=== PATIENT | female | born 1935 | race Caucasian/White ===

== ENCOUNTER → 2018-02-11 | Day surgery (SDC) | payer MEDICARE ==
--- NOTE | 2018-02-10 13:22 | Pre Op History & Physical ---
CHIEF COMPLAINT: Is chronic sinusitis, nasal obstruction. HISTORY OF PRESENT ILLNESS: This 82-year-old female has history of nasal obstruction. She has postnasal drip discharge from her nose. She has frontal and maxillary pain. She has decreased sense of smell. The patient's sinus condition has been treated with topical nasal steroid, decongestant, antibiotics with no improvement. The patient also has undergone a sinuplasty in June of 2017. However, the problem did not completely go away. The patient also is pending a dental implant without the maxillary sinus been cleared. Patient cannot undergo implantation. REVIEW OF SYSTEMS: Showed no recent cardiovascular, respiratory or GI problem. PAST MEDICAL HISTORY: Patient has no significant medical problem. PAST SURGICAL HISTORY: Patient has previous gastric bypass surgery, rotator cuff surgery and right thyroidectomy. ALLERGIES: SHE IS ALLERGIC TO CODEINE, WHICH MAKES HER WITH NAUSEA. MEDICATIONS: She is on Synthroid, oxybutynin and Lasix. SOCIAL HISTORY: She is a nonsmoker, nondrinker. FAMILY HISTORY: Noncontributory. PHYSICAL EXAMINATION: VITAL SIGNS: Within normal limits. EAR: Exam showed normal tympanic membranes bilaterally. NOSE: Exam showed hypertrophy of the inferior turbinate. THROAT: Oropharynx and oral cavity showed no obvious abnormality. NECK: Exam showed no lymph node or thyroid palpable. CHEST: Exam showed good air entry bilaterally. CARDIOVASCULAR: Exam showed S1 and S2. No murmur noted. FACILITY MANAGER HISTOLOGY: Exam showed cranial nerves 2-12 were within normal limits. Ms. Coleman has chronic sinusitis, nasal obstruction, which was confirmed on CAT scan that was done in January of 2018. Her condition has been resistant to conservative therapy. The suggested treatment is endoscopic sinus surgery, septoplasty, resection of the inferior turbinate and other necessary procedures. The complications of procedure include but not limited to bleeding, infection, CSF leak, blindness, double vision, meningitis, septal perforation, septal hematoma, persistent nasal obstruction, persistent nasal crusting, nasal deformity, recurrence of the sinus problem. The alternatives would be continued observation, continued antibiotic therapy, topical nasal steroid therapy, systemic steroid therapy, decongestant. The patient has elected to undergo the surgical procedure. Job#: [id number] EV
[~2018-02-11] MED LIST: ALLOPURINOL100 MG PO; ASPIR 8181 MG PO; DEXAMETHASONE SOD PHOS INJ 4 MG/ML VIAL ONE; EPINEPHRINE HCL INJ 1 MG/ML AMP ONE; ESMOLOL HCL 100MG/10ML 10 MG/ML VIAL ONE; FENTANYL CITRATE/PF 100MCG/2 ML INJ ONE; GLYCOPYRROLATE INJ 1MG/ 5 ML SYR ONE; LASIX20 MG PO; LEVOTHYROXINE0.5 GM; LEVOTHYROXINE50 MCG PO; LIDOCAINE 1% W/EPINEPHRINE 20 ML VIAL ONE; LIDOCAINE HCL 2% LOCAL INJ 5 ML SDV VIAL INJ ONE; MELOXICAM15 MG PO; METOPROLOL SUCC50 MG PO; NEOSTIGMINE 5 MG/5ML SYR ONE; ONDANSETRON HCL INJ 2 MG/ML VIAL ONE; OXYBUTYNIN; OXYBUTYNIN CHLOR5 MG PO; POTASSIUM CHLO10 ME1 PO; PROPOFOL IV EMULSION 10 MG/ML 20 ML VIAL ONE; ROCURONIUM BROMIDE 10 MG/ML 5ML VIAL ONE; SEVOFLURANE INHAL SOLN 250 ML PEN BTL ONE; ZOLOFT25 MG; ZOLOFT50 MG PO
--- OUTSIDE RECORDS SUMMARY | 2018-02-11 06:42 | XMS REPORT | Clinical Summary ---
Author Author [facility] Organization [facility] Address Unknown Phone Unavailable Care Team Providers [facility] Agent Name Role Phone Twan Melgar MD PCP Allergies Active Allergy Reactions Severity Noted Date Comments Codeine Other (See Comments) 01/10/2017 nausea Current Medications Prescription Sig. Disp. Refills Start End Date Status Date allopurinol (ZYLOPRIM) TK 1 T PO QD 0 10/26/19 Active 100 MG tablet 17 furosemide (LASIX) 20 mg Take 1 tablet daily 12/18/19 Active tablet 17 levothyroxine (SYNTHROID, Take 1 tablet daily 12/25/19 Active LEVOXYL) 100 mcg tablet 17 oxybutynin (DITROPAN) 5 TK 1 T PO QD 0 12/26/19 Active MG tablet 17 sertraline (ZOLOFT) 50 MG TK 1 T PO QD 0 12/26/19 Active tablet 17 meloxicam (MOBIC) 15 mg TK 1 T PO QD 0 12/26/19 Active tablet 17 aspirin (ECOTRIN) 81 MG Take 81 mg by mouth Active enteric coated tablet daily. potassium chloride TAKE 1 CAPSULE(10 MEQ) BY 60 capsule 0 06/25/20 Active (MICRO-K) 10 MEQ CR MOUTH TWICE DAILY 17 capsule metoprolol tartrate Take 1 tablet (50 mg 60 tablet 3 01/07/20 Active (LOPRESSOR) 50 mg tablet total) by mouth 2 (two) 18 times a day with meals. metoprolol tartrate TK 1 T PO BID WITH MEALS 3 01/04/20 02/19/20 Discontin (LOPRESSOR) 50 mg tablet 17 17 ued potassium chloride TAKE 1 CAPSULE(10 MEQ) BY 60 capsule 3 01/23/20 06/18/20 Discontin (MICRO-K) 10 MEQ CR MOUTH TWICE DAILY 17 17 ued capsule metoprolol tartrate TAKE 1 TABLET BY MOUTH 90 tablet 3 02/19/20 Discontin (LOPRESSOR) 50 mg tablet TWICE DAILY WITH MEALS 17 17 ued metoprolol tartrate Take 1 tablet (50 mg 90 tablet 3 02/26/20 Discontin (LOPRESSOR) 50 mg tablet total) by mouth 2 (two) 17 17 ued times a day with meals. metoprolol tartrate TAKE 1 TABLET BY MOUTH 90 tablet 3 02/28/20 Discontin (LOPRESSOR) 50 mg tablet TWICE DAILY WITH MEALS 17 17 ued potassium chloride TAKE 1 CAPSULE(10 MEQ) BY 60 capsule 3 06/18/20 12/11/19 Discontin (MICRO-K) 10 MEQ CR MOUTH TWICE DAILY 17 18 ued capsule potassium chloride TAKE 1 CAPSULE(10 MEQ) BY 60 capsule 0 06/26/20 08/28/20 Discontin (MICRO-K) 10 MEQ CR MOUTH TWICE DAILY 17 17 ued capsule potassium chloride TAKE ONE CAPSULE BY MOUTH 60 capsule 3 08/28/20 11/01/19 Discontin (MICRO-K) 10 MEQ CR TWICE DAILY 17 18 ued capsule metoprolol tartrate Take 1 tablet (50 mg 60 tablet 3 09/09/20 Discontin (LOPRESSOR) 50 mg tablet total) by mouth 2 (two) 17 18 ued times a day with meals. metoprolol tartrate Take 1 tablet (50 mg 60 tablet 3 11/01/19 Discontin (LOPRESSOR) 50 mg tablet total) by mouth 2 (two) 18 18 ued times a day with meals. potassium chloride Take 1 capsule (10 mEq 60 capsule 3 11/01/19 Discontin (MICRO-K) 10 MEQ CR total) by mouth 2 (two) 18 18 ued capsule times a day. Active Problems Problem Noted Date Hyperlipidemia Hypertension Goiter Gout Encounters Date Type Specialty Care Team Description 01/06/2018 Refill Cardiology lEisa Fox MA Med Refill 12/11/2017 Office Visit Cardiology Kervin Gaona Secondary hypertension (Primary Dx); Palpitations; Palpitation; Chest pain, unspecified type; Dyspnea, unspecified type; Essential hypertension; Pure hypercholesterolemia; Goiter; Gout, unspecified cause, unspecified chronicity, unspecified site; Familial hypercholesterolemia 11/01/2017 Refill Cardiology Elisa Fox MA Med Refill 09/09/2017 Refill Cardiology Tia Nicole MA Med Refill 08/28/2017 Refill Cardiology Kervin Gaona Med Refill 06/24/2017 Refill Cardiology Kervin Gaona, Med Refill 06/18/2017 Refill Cardiology Kervin Gaona, Med Refill 06/18/2017 Refill Cardiology Kervin Gaona, Med Refill 02/27/2017 Refill Cardiology Kervin Gaona, Med Refill 02/25/2017 Refill Cardiology Lizzeth Reed MA Med Refill 02/18/2017 Refill Cardiology Kervin Gaona, Med Refill 02/11/2017 [facility] Radiology Junior Melgar MD after 02/10/2017 Family History Medical History Relation Name Comments Heart failure Father Relation Name Status Comments Father Social History Tobacco Use Types Packs/Day Years Used Date Never Smoker Smokeless Tobacco: Never Used Alcohol Use Drinks/Week oz/Week Comments No Sex Assigned at Date Recorded Not on file Last Filed Vital Signs Vital Sign Reading Time Taken Blood Pressure 136/64 12/11/2017 12:08 PM [employer] Pulse 79 12/11/2017 12:08 PM [employer] Temperature 36.6 C (97.8 F) 12/11/2017 12:08 PM [employer] Respiratory Rate - - Oxygen Saturation 98% 12/11/2017 12:08 PM [employer] Inhaled Oxygen - - Concentration Weight 69.8 kg (153 lb 12.8 oz) 12/11/2017 12:08 PM [employer] Height 167.6 cm (5' 6") 12/11/2017 12:08 PM [employer] Body Mass Index 24.82 12/11/2017 12:08 PM [employer] Plan of Treatment Date Type Specialty Care Team Description 06/09/2018 Office Visit Cardiology Kervin Gaona MD [address] [place] [id number] [phone] Health Maintenance Due Date Last Done Comments SHINGRIX VACCINE (#1) 1984 ZOSTER VACCINE 1994 PNEUMOCOCCAL 1999 POLYSACCHARIDE VACCINE AGE 65 AND OVER PNEUMOCOCCAL-13 1999 INFLUENZA VACCINE 05/14/2018 Results * CBC hemogram (12/13/2017 8:35 AM) Component Value Ref Range WBC 3.6 (L) 3.8 - 10.8 Thousand/uL RBC 3.77 (L) 3.80 - 5.10 Million/uL HGB 10.7 (L) 11.7 - 15.5 g/dL HCT 31.9 (L) 35.0 - 45.0 % MCV 84.6 80.0 - 100.0 fL MCH 28.4 27.0 - 33.0 pg MCHC 33.5 32.0 - 36.0 g/dL RDW 15.1 (H) 11.0 - 15.0 % Platelet count 141 140 - 400 Thousand/uL MPV 12.4 7.5 - 12.5 fL Specimen Performing Laboratory [facility] * Thyroid stimulating hormone (12/13/2017 8:35 AM) Component Value Ref Range TSH 0.56 0.40 - 4.50 mIU/L Specimen Performing Laboratory [facility] * Comprehensive metabolic panel (12/13/2017 8:35 AM) Component Value Ref Range Glucose 107 (H) 65 - 99 mg/dL Comment: Fasting reference interval For someone without known diabetes, a glucose value between 100 and 125 mg/dL is consistent with prediabetes and should be confirmed with a follow-up test. BUN, whole blood 25 7 - 25 mg/dL Creatinine 1.40 (H) 0.60 - 0.88 mg/dL Comment: For patients >49 years of age, the reference limit for Creatinine is approximately 13% higher for people identified as -Nigerian. EGFR Non-Afr. Nigerian 35 (L) > OR=60 mL/min/1.73m2 EGFR 40 (L) > OR=60 mL/min/1.73m2 BUN/creatinine ratio 18 6 - 22 (calc) Sodium 140 135 - 146 mmol/L Potassium 4.5 3.5 - 5.3 mmol/L Chloride 106 98 - 110 mmol/L CO2 26 20 - 31 mmol/L Calcium 9.2 8.6 - 10.4 mg/dL Protein 6.4 6.1 - 8.1 g/dL Albumin, S 4.0 3.6 - 5.1 g/dL Globulin, total 2.4 1.9 - 3.7 g/dL (calc) Albumin/globulin ratio 1.7 1.0 - 2.5 (calc) Total bilirubin 0.7 0.2 - 1.2 mg/dL Alkaline phosphatase 114 33 - 130 U/L AST 13 10 - 35 U/L ALT 9 6 - 29 U/L Specimen Performing Laboratory [facility] * Mammo Breast Screen [facility] (02/11/2017 12:46 PM) Specimen Performing Laboratory [facility] [address] [place] [address] Narrative PROCEDURE: SCREENING DIGITAL BREAST [facility] Computer-assisted detection was utilized inthe interpretation of this exam. COMPARISON: 2014, 2013, and 2012. TECHNIQUE: Right digital screening mammogram was performed and interpreted using computer-assisted detection. HISTORY: Asymptomatic routine screening. History of left mastectomy in year 2000. Family History: Personal history of breast cancer. FINDINGS: BreastComposition: There are scattered areas of fibroglandular density ( category B). No suspicious mass , architectural distortion or suspicious microcalcifications are present. Benign-appearing calcifications are present diffusely distributed throughout the breast bilaterally There has been no significant interval change since prior mammograms. IMPRESSION: No mammographic evidence of malignancy. Birads Category 2. Benign. RECOMMENDATIONS:If the clinical breast examination is unchanged and normal , annual screening mammography is recommended per ACS and ACR guidelines. NOTE: This facility is a designated [facility] ( [facility]) , meeting standards of accreditation in all modalities of breast imaging. This facility is accredited by [employer] for Mammography. A negative x-ray report should not delay biopsy if a dominant or clinically suspicious mass is present. Not all cancers are identified by x-ray. [id number] Procedure Note Interface, Radiology Conversion - 02/11/2017 3:00 PM CDT PROCEDURE: SCREENING DIGITAL BREAST [facility] Computer-assisted detection was utilized in the interpretation of this exam. COMPARISON: 2014, 2013, and 2012. TECHNIQUE: Right digital screening mammogram was performed and interpreted using computer-assisted detection. HISTORY: Asymptomatic routine screening. History of left mastectomy in 2000. Family History: Personal history of breast cancer. FINDINGS: Breast Composition: There are scattered areas of fibroglandular density ( category B). No suspicious mass , architectural distortion or suspicious microcalcifications are present. Benign-appearing calcifications are present diffusely distributed throughout the breast bilaterally There has been no significant interval change since prior mammograms. IMPRESSION: No mammographic evidence of malignancy. Birads Category 2. Benign. RECOMMENDATIONS: If the clinical breast examination is unchanged and normal , annual screening mammography is recommended per ACS and ACR guidelines. NOTE: This facility is a designated [facility] ( [facility]) , meeting standards of accreditation in all modalities of breast imaging. This facility is accredited by [employer] for Mammography. A negative x-ray report should not delay biopsy if a dominant or clinically suspicious mass is present. Not all cancers are identified by x-ray. [id number] after 02/10/2017 Insurance Payer Benefit Subscriber ID Type Phone Address Plan / Group MEDICARE MEDICARE xxxxxxxxxxx Medicare [place], [place] PART A AND B AARP AARP xxxxxxxxx Commercial SUPPLEMENT
--- NOTE | 2018-02-11 14:22 | Operative Report ---
DATE OF PROCEDURE: February 11, 2018 CHIEF COMPLAINT: Chronic sinusitis and nasal obstruction. POSTOPERATIVE DIAGNOSIS: Chronic sinusitis and nasal obstruction. OPERATION PERFORMED 1. Bilateral exploration of nasofrontal recess area. 2. Bilateral sphenoidectomy. 3. Bilateral anterior and posterior ethmoidectomy. 4. Bilateral maxillary sinus antrostomy. 5. Bilateral resection of polyps from maxillary antrum. 6. Bilateral resection of charley bullosa. ANESTHESIA: Anesthesiology Group. INDICATIONS: This 82-year-old female has history of nasal obstruction, postnasal drip and discharge from her nose. Patient has persistent sinus opacification involving the ethmoid sinuses and maxillary sinuses, also frontal sinus involvement and sphenoid sinus involvement. Mainly the maxillary sinus involvement is persistent. Patient desired dental implant but without the clearing of the maxillary sinus cavity, this was not possible. It was decided that endoscopic sinus surgery, septoplasty and other necessary procedures would be beneficial for her. A CT scan of paranasal sinuses done before surgery showed the patient has chronic sinusitis worse in the left maxillary sinus with calcification and ethmoid sinus involvement, frontal sinus involvement and also mucosal thickening in the sphenoid sinus. PROCEDURE IN DETAIL: Patient was taken to the operating room, put under general anesthesia, and endotracheally intubated. The nose was injected with 1% Xylocaine with 1:100,000 epinephrine for hemostasis. Epinephrine-soaked pledget was inserted in the nose and subsequently removed. The left paranasal sinuses were approached first. Middle turbinate was medialized. The frontal sinus was entered using the Entellus device. The nasofrontal recess area was dilated with the balloon. Frontal sinus was irrigated with copious amount of normal saline. Debris and tissue were irrigated out. The bulla ethmoidalis was entered. Anterior and posterior ethmoid sinuses were dissected in systematic fashion. Polypoid tissue was noted in both the anterior and posterior ethmoid sinus area. Care was taken during dissection to ascertain the orbit was not entered. The sphenoid sinus was entered through a natural ostium. This was enlarged using a microshaver. Polypoid changes in the sphenoid sinus were dissected using a microshaver. Using a microshaver, the lateral portion of the middle turbinate was dissected, thereby resecting the charley bullosa. Using a curved probe, the natural ostium of the maxillary sinus was entered. This was enlarged anteriorly and posteriorly using backbiting and True-Cut forceps respectively. The natural ostium was enlarged all the way to the floor of the nose. Polypoid tissue in the maxillary antrum was dissected using the up-biting True-Cut forceps. The maxillary sinus was re-examined using a 45-degree telescope. No other abnormality was noted. To ascertain that no infection was left in the maxillary sinus, this was irrigated with copious amount of normal saline. The right paranasal sinuses were approached. The middle turbinate was medialized. Using the Entellus device, the frontal sinus was entered. The nasal bone recess area was dilated with the balloon. The frontal sinus was irrigated with copious amount of normal saline. Debris and tissue were irrigated out. Using a microshaver, the lateral portion of the middle turbinate was dissected, thereby resecting the charley bullosa. The bulla ethmoidalis was entered. Anterior and posterior ethmoid sinuses were dissected in systematic fashion. Polypoid tissue was noted both in the anterior and posterior ethmoid sinus areas. Care was taken during dissection to ascertain the orbit was not entered. The sphenoid sinus was entered through a natural ostium. This was enlarged using a microshaver. Polypoid tissue in the sphenoid sinus was dissected using a microshaver. Using a curved probe, the natural ostium of the maxillary sinus was entered. This was enlarged anteriorly and posteriorly using backbiting and True-Cut forceps respectively. The natural ostium was opened all the way to the level of the floor of the maxillary sinus. Any mucosal polypoid changes were dissected using the microshaver. Nasopore was inserted into the sinus cavities on either side. This was done to prevent synechiae formation and for hemostasis. The patient tolerated the above procedure well with estimated blood loss of about 20 mL. She was given 20 mg of Decadron intraoperatively. Patient was able to be transferred to the recovery room in stable condition. Job#: [id number]
== END | disposition home or self-care (01) ==
LOC: OR 06:38
PROVIDERS: ATTEND Otolaryngology Otolaryngology/Facial Plastic Surgery
DX: J32.0 Chronic maxillary sinusitis (principal); J33.9 Nasal polyp, unspecified; M19.90 Unspecified osteoarthritis, unspecified site; I10 Essential (primary) hypertension; D64.9 Anemia, unspecified; D69.6 Thrombocytopenia, unspecified; F41.9 Anxiety disorder, unspecified; Z79.82 Long term (current) use of aspirin
CPT/HCPCS: 31240; 31253; 31267; 31288; 86850; 86900; 88305; 93005; J0171; J1100; J2001; J2405